=== PATIENT | female | born 1980 | race African-American/Black ===

== ENCOUNTER 2020-08-31 12:41 | Emergency (ER) | payer SELFPAY ==
--- NOTE | 2020-08-31 13:24 | ER Document Report ---
ED Medical Screen (RME) - General Chief Complaint: Vaginal Bleeding Stated Complaint: VAGINAL BLEEDING Time Seen by Provider: 08/31/20 13:20 Mode of Arrival: Ambulatory Information source: Patient Notes: 40-year-old female presents to ED for vaginal bleeding since August 10. She states it started out light and then a couple days later got to be her normal. She states the flow has fluctuated between heavy and light since then. She states she did have cramping for the second and third days of her cycle she states she is not having any pain at this time. She states she has had some lig htheadedness the last couple days. She states that the reason she came into the emergency room. We will get blood urine and a transvaginal ultrasound and she will be seen by another provider. I have greeted and performed a rapid initial assessment of this patient. A comprehensive ED assessment and evaluation of the patient, analysis of test results and completion of medical decision making process will be conducted by an additional ED providers. Physical Exam - Vital signs Vitals: Temp Pulse Resp BP Pulse Ox 97.7 F 81 14 125/67 100 08/31/20 12:55 08/31/20 12:55 08/31/20 12:55 08/31/20 12:55 08/31/20 12:55 Course - Vital Signs Vital signs: Temp Pulse Resp BP Pulse Ox 97.7 F 81 14 125/67 100 08/31/20 12:55 08/31/20 12:55 08/31/20 12:55 08/31/20 12:55 08/31/20 12:55
--- NOTE | 2020-08-31 14:52 | RADIOLOGY REPORT (SQ) ---
EXAM DESCRIPTION: U/S NON-OB PELVIS TV W/O DOP IMAGES COMPLETED DATE/TIME: 08/31/2020 2:38 pm REASON FOR STUDY: Vaginal bleeding since August 10 COMPARISON: None. TECHNIQUE: Dynamic and static grayscale images acquired of the pelvis via transvaginal approach and recorded on PACS. Additional selected color Doppler and spectral images recorded. LIMITATIONS: None. FINDINGS: UTERUS: Multiple fibroids. The largest measure 2 cm in largest diameter. ENDOMETRIAL STRIPE: No focal or generalized thickening. No masses. CERVIX: 3 cm. No nabothian cysts. RIGHT OVARY AND DOPPLER: Normal size. 4 x 3 x 3 cm cyst. No worrisome masses. Normal arterial vascu lar flow without evidence for torsion. LEFT OVARY AND DOPPLER: Normal size. No worrisome masses. Normal arterial vascular flow without evide nce for torsion. FREE FLUID: None noted. OTHER: No other significant finding. MEASUREMENTS: UTERUS: 9 x 6 x 5 cm. ENDOMETRIAL STRIPE: 10 mm. RIGHT OVARY: 5 x 4 x 3 cm. LEFT OVARY: 3 x 2 x 2 cm. IMPRESSION: Uterine fibroids. 4 x 3 x 3 cm right ovarian cyst is almost certainly benign. No addit ional imaging is required for this. TECHNICAL DOCUMENTATION: JOB ID: [id number] 2010 [employer]- All Rights Reserved Rev-03/13 Reading location - IP/workstation name: [email or web address]
[2020-08-31 15:00] LABS: ABSOLUTE BASOPHILS # (AUTO) 0.1 10^3/uL (0.0-0.2); ABSOLUTE EOSINOPHILS # (AUTO) 0.1 10^3/uL (0.0-0.6); ABSOLUTE LYMPHOCYTES (AUTO) 2.6 10^3/uL (0.5-4.7); ABSOLUTE MONOCYTES (AUTO) 0.5 10^3/uL (0.1-1.4); ABSOLUTE NEUT (AUTO) 7.7 10^3/uL (1.7-8.2); BASOPHILS % (AUTO) 0.5 % (0-2); EOSINOPHILS % (AUTO) 0.7 % (0-6); HEMATOCRIT 18.5 % (36.0-47.0); LYMPHOCYTES % (AUTO) 23.6 % (13-45); MEAN CORPUSCULAR HEMOGLOBIN 16.3 pg (27.0-33.4); MEAN CORPUSCULAR HGB CONC 28.1 g/dL (32.0-36.0); MONOCYTES % (AUTO) 4.8 % (3-13); RED BLOOD COUNT 3.19 10^6/uL (3.72-5.28); RED CELL DISTRIBUTION WIDTH 19.7 % (11.5-14.0); SEGMENTED NEUTROPHILS % (AUTO) 70.4 % (42-78); TOTAL CELLS COUNTED % (AUTO) 100 %; WHITE BLOOD COUNT 10.9 10^3/uL (4.0-10.5)
[2020-08-31 15:15] LABS: MEAN CORPUSCULAR VOLUME 58 fl (80-97)
[2020-08-31 15:17] LABS: ANISOCYTOSIS 2+; APPEARANCE,URINE CLEAR; BILIRUBIN,URINE NEGATIVE (NEGATIVE); COLOR,URINE YELLOW; GLUCOSE, URINE NEGATIVE (NEGATIVE); HYPOCHROMASIA 2+; KETONES,URINE NEGATIVE (NEGATIVE); LEUKOCYTE ESTERASE,URINE TRACE (NEGATIVE); NITRITE,URINE NEGATIVE (NEGATIVE); PROTEIN,URINE 30 mg/dL (NEGATIVE); URINE SPECIFIC GRAVITY 1.023
[2020-08-31 15:18] LABS: INTERNATIONAL RATION (INR) 1.12; PROTHROMBIN TIME 14.6 SEC (11.4-15.4); SCHISTOCYTES 1+; TEAR DROP CELLS 1+
[2020-08-31 15:19] LABS: OVALOCYTES 1+; PLATELET CLUMPS PRESENT; PLATELET COMMENT ADEQUATE; PLATELET COUNT 320 10^3/uL (150-450)
[2020-08-31 15:20] LABS: ALBUMIN 4.1 g/dL (3.5-5.0); ALKALINE PHOSPHATASE 80 U/L (38-126); ANION GAP 11 (5-19); ASPARTATE AMINO TRANSFERASE 30 U/L (14-36); BILIRUBIN,TOTAL 0.5 mg/dL (0.2-1.3); BLOOD UREA NITROGEN 8 mg/dL (7-20); CALCIUM 9.2 mg/dL (8.4-10.2); CARBON DIOXIDE 23 mmol/L (22-30); CHLORIDE 105 mmol/L (98-107); GLUCOSE 99 mg/dL (75-110); HEMOGLOBIN 5.2 g/dL (12.0-15.5); POTASSIUM 3.9 mmol/L (3.6-5.0); TOTAL PROTEIN 7.8 g/dL (6.3-8.2)
[2020-08-31 15:43] LABS: URINE AMPHETAMINES SCREEN NEGATIVE; URINE BARBITURATES SCREEN NEGATIVE; URINE BENZODIAZEPINES SCREEN NEGATIVE; URINE COCAINE SCREEN NEGATIVE; URINE MARIJUANA (THC) SCREEN NEGATIVE; URINE METHADONE SCREEN NEGATIVE; URINE PHENCYCLIDINE SCREEN NEGATIVE
[2020-08-31] MEDS ORDERED: NORMAL SALINE 250 ML IV PRN ×2 (17:30)
[2020-08-31] MEDS ORDERED: ROCURONIUM BROMIDE INJ 50 MG/5 ML VIAL IV ONE (17:32)
[2020-08-31] MEDS ORDERED: ETOMIDATE INJ/PF 20 MG/10 ML SDV IV ONE (17:32)
[2020-08-31] MEDS ORDERED: MEDROXYPROGESTERONE ACET 10 MG TABLET PO ONE (18:20)
--- NOTE | 2020-08-31 18:20 | ER Document Report ---
ED General - General Chief Complaint: Vaginal Bleeding Stated Complaint: VAGINAL BLEEDING Time Seen by Provider: 08/31/20 13:20 Mode of Arrival: Ambulatory - HPI Notes: Patient is a 40-year-old female presents emergency department for evaluation of abnormal vaginal bleeding. She started bleeding on the . She was bleeding very heavily. She states actually today was the first day that her bleeding improved. She was using 10-12 super plus tampons daily, in addition to pads. Today she is only needed 3 or 4 tampons. She denies any pain. No vaginal discharge. - Related Data Allergies/Adverse Reactions: hydrocodone Allergy (Verified 08/31/20 13:21) Past Medical History - General Information source: Patient Last Menstrual Period: 08/10/2020 - Social History Smoking Status: Current Every Day Smoker Chew tobacco use (# tins/day): No Frequency of alcohol use: Social Drug Abuse: None Family History: DM, Hypertension - Medical History Medical History: Other - Anemia Past Surgical History: Reports: Hx Section, Other - Labial cyst removal Review of Systems - Review of Systems Constitutional: No symptoms reported EENT: No symptoms reported Cardiovascular: No symptoms reported Respiratory: No symptoms reported Gastrointestinal: No symptoms reported Genitourinary: No symptoms reported Female Genitourinary: See HPI Musculoskeletal: No symptoms reported Skin: No symptoms reported Neurological/Psychological: No symptoms reported -: Yes All other systems reviewed and negative Physical Exam - Vital signs Vitals: Temp Pulse Resp BP Pulse Ox 97.7 F 81 14 125/67 100 08/31/20 12:55 08/31/20 12:55 08/31/20 12:55 08/31/20 12:55 08/31/20 12:55 - Notes Notes: Vital signs reviewed, please refer to chart. Head is normocephalic, atraumatic. Pupils equal round, reactive to light. Neck is supple without meningismus. Heart is regular rate and rhythm. Lungs are clear to auscultation bilaterally. Abdomen is soft, nontender, normoactive bowel sounds throughout. Extremities without cyanosis, clubbing. Posterior calves are nontender. Peripheral pulses are equal. Skin is warm and dry. Patient is awake, alert, neurological exam is nonfocal. Pelvic exam performed with RUSTY Cruz, present in the room. Normal external genitalia. Minimal vaginal bleeding noted. Cervical os is closed. No obvious masses. Course - Re-evaluation Re-evalutation: 08/31/20 18:16 Patient presents to the emergency department for evaluation of abnormal vaginal bleeding. Her hemoglobin is found to be 5.2. I will give her some blood. I will start her on iron. Her work-up and ultrasound here is largely unremarkable. I will refer her onto [facility]. 08/31/20 18:[address] Flores, on-call RECRUITING MANAGER. He recommends Provera 10 mg daily for the next 30 days. He recommends [facility] follow-up as an outpatient. Patient was notified. - Vital Signs Vital signs: Temp Pulse Resp BP Pulse Ox 98.3 F 78 12 141/78 H 100 08/31/20 16:48 08/31/20 16:48 08/31/20 16:48 08/31/20 16:48 08/31/20 16:48 - Laboratory Result Diagrams: 08/31/20 14:35 08/31/20 14:35 Laboratory results interpreted by me: 08/31/20 08/31/20 08/31/20 14:35 14:35 14:35 WBC 10.9 H RBC 3.19 L Hgb 5.2 L Hct 18.5 L MCV 58 L MCH 16.3 L MCHC 28.1 L RDW 19.7 H Urine Protein 30 H Urine Blood SMALL H Urine Urobilinogen 2.0 H Ur Leukocyte Esterase TRACE H Crossmatch See Detail Discharge - Discharge Clinical Impression: Abnormal vaginal bleeding, Blood loss anemia Condition: Stable Disposition: HOME, SELF-CARE Instructions: Anemia ([facility]), Vaginal Bleeding ([facility]) Additional Instructions: You received a blood transfusion here today. Gynecology has recommended that you start taking Provera to stop the vaginal bleeding. You are to follow-up with them in 1 to 2 weeks. Return to the emergency department with worsening or new concerning symptoms of any sort. Prescriptions: Medroxyprogesterone Acet [Provera 10 Mg Tablet] 10 mg PO DAILY #30 tablet
[2020-08-31 21:17] VITALS: BP 128/71
[2020-09-01 13:29] LABS: PATH REVIEW PATHOLOGIST REVIEWED
== END 2020-08-31 21:46 | disposition home or self-care (01) ==
LOC: ER 12:41
DX: N93.9 Abnormal uterine and vaginal bleeding, unspecified (principal); D50.0 Iron deficiency anemia secondary to blood loss (chronic); F17.200 Nicotine dependence, unspecified, uncomplicated
CPT/HCPCS: 99285; 96360; 96361; 86900; 86901; 36415; 87086; 36430; 86850; 84702; 85025; 85610; 85730; 87088; 80053; 81001; 87186; 80307; 86920; 76830; P9016; J3490; J7050